=== PATIENT | male | born 1970 | race Caucasian/White ===

== ENCOUNTER 2017-05-23 09:57 | Day surgery (SDC) | payer BC ==
[2017-05-22 10:12] VITALS: BMI 25.7
[2017-05-23] MEDS ORDERED: Oxymetazoline HCl 0.05% ( 15 ML ) ONE ×2 (10:46→11:58)
[2017-05-23] MEDS ORDERED: Ondansetron HCl/PF 4 MG/2 ML Vial ONE (11:06)
[2017-05-23] MEDS ORDERED: PROPOFOL 200 MG/20 ML VIAL ONE (11:06)
[2017-05-23] MEDS ORDERED: Succinylcholine Chloride 20 MG/ML 10 ml SYRINGE FS ONE (11:06)
[2017-05-23] MEDS ORDERED: Lidocaine 1% PF 5 ML VIAL ONE (11:06)
[2017-05-23] MEDS ORDERED: Dexamethasone 20 MG/5 ML VIAL ONE (11:06)
[2017-05-23] MEDS ORDERED: Midazolam HCl 2 mg/2 ml Vial ONE ×2 (11:16→11:53)
[2017-05-23] MEDS ORDERED: Fentanyl 100 MCG/2 ML VIAL ONE ×3 (11:53→14:07)
[2017-05-23] MEDS ORDERED: Lidocaine 1% w/Epinephrine 1:200K 30 ML VIAL ONE (11:57)
[2017-05-23] MEDS ORDERED: Bacitracin Zinc Ointment 30 gm TUBE ONE (11:58)
[2017-05-23] MEDS ORDERED: Ondansetron HCl/PF 4 MG/2 ML Vial IVP PRN (14:15)
[2017-05-23] MEDS ORDERED: Promethazine HCl 25 MG/ML VIAL IM/IV PRN (14:15)
[2017-05-23] MEDS ORDERED: Hydrocodone-Acetamin 15 ML UDCUP ONE (14:48)
--- NOTE | 2017-05-23 19:57 | EKG ---
Test Reason : PREOP Blood Pressure : / mmHG Vent. Rate : 068 BPM Atrial Rate : 068 BPM P-R Int : 138 ms QRS Dur : 096 ms QT Int : 394 ms P-R-T Axes : 047 073 048 degrees QTc Int : 418 ms Normal sinus rhythm with sinus arrhythmia Normal ECG No previous ECGs available Confirmed by VANESSA MCGEE, DR. Benson ([id number]) on 05/23/2017 7:57:21 PM Referred By: BETSEY Confirmed By:DR. Marcelino MENDEZ MD
--- NOTE | 2017-05-24 14:18 | OP ---
DATE OF PROCEDURE: 05/23/2017 PREOPERATIVE DIAGNOSES: 1. Profound septal deformity. 2. Hypertrophic inferior turbinates. 3. Nasal obstruction. POSTOPERATIVE DIAGNOSES: 1. Profound septal deformity. 2. Hypertrophic inferior turbinates. 3. Nasal obstruction. PROCEDURE PERFORMED: 1. Septoplasty. 2. Bilateral nasal endoscopy with submucosal resection of inferior turbinates. PROCEDURE IN DETAIL: After consent was obtained, the patient was identified, brought to the operatin g room, and placed on the operating room table in the supine position. Consent was obtained, notifyi ng the patient of the possibility of additional infections, bleeding, brain injury, and eye/orbital i njury. The patient was placed on the operating room table, and general endotracheal anesthesia and intravenous access was obtained. The patient was then positioned, prepped and draped for endoscopic sinus surgery. Nasal preparation included trimming nasal vestibular hairs and spraying in topical Af rin. We then placed Afrin topical solution on nasal pledgets and strategically located them intranas ally. The perinasal mucosa was injected with 1% lidocaine with 1:100,000 epinephrine in the submucop erichondrial plane of the septum, lateral nasal wall, and anterior to the uncinate. The patient was then prepped and draped in a sterile fashion and positioned for endoscopic sinus surgery. With the 0-degree endoscope, the patient underwent systematic nasal endoscopy. There were no suspici ous internasal masses or lesions identified. We then focused our attention to the osteomeatal comple x region under the middle turbinate. The inferior turbinates were visualized with a 0-degree endoscope and outfractured with a Fredy eleva tor. The inferior medial aspect was cauterized with the electrocautery. Hemostasis was obtained . After adequate airway was established, we turned our attention to the contralateral side and used a s imilar procedure. Again, a [place] elevator was used to outfracture inferior turbinates under endoscop ic visualization. With a suction cautery, the free inferior medial aspect was cauterized under direc t visualization along the length of the inferior turbinate. After local anesthesia was infiltrated into the submucoperichondrial plane, a standard Jovon incisi on was made with a #15 blade down to the level of the septal cartilage. The caudal elevator was used to elevate the mucoperichondrium from the underlying cartilage. We then proceeded beyond the bony c artilaginous junction and elevated the bony periosteum as well. Great attention was paid to the spur to prevent rent formation in the septal flap. A transcartilaginous incision was then made, while pre serving an adequate dorsal and caudal cartilaginous strut for tip support. The deformed cartilage wa s removed and disarticulated from the bony cartilaginous junction and maxillary crest. This was plac ed in saline and would later be crushed and returned to the mucoperichondrial envelope. We then elev ated the contralateral periosteum from the bony cartilaginous region and removed the deformed portion s of the bone and bony spurs. The cartilage was then crushed and placed back into the mucoperichondr ial envelope and the mucosa was re-approximated with a quilting stitch composed of rapidly absorbent gut suture. The Jovon incision was also closed with interrupted gut suture. At the completion of the case, [place] splints were placed and suture secured to the caudal septum. At this point, we then turned our attention to the contralateral side and proceeded with endoscopic s inus surgery. At the completion of the case, Rice keel splints were placed in the ethmoid cavities after the ethmoi dectomy. There were no complications. The patient tolerated the procedure well and was discharged t o the recovery room in stable condition prior to return to the preoperative Day Stay with [facility]. Prescriptions for pain medication and antibiotics were provided. The patient received intramuscular Depo-Medrol during the case.
== END 2017-05-23 15:57 | disposition home or self-care (01) ==
LOC: SDC 09:57
PROVIDERS: ATTEND Specialist
PROC: 09BM0ZZ Excision of Nasal Septum, Open Approach (ICD-10-PCS; principal; 2017-05-23)
DX: J34.3 Hypertrophy of nasal turbinates (principal); J34.2 Deviated nasal septum
CPT/HCPCS: 93005; 93010; 96374; J1100; J2001; J2250; J2405; J2704; J3010